=== PATIENT | female | born 1975 | race Caucasian/White ===

== ENCOUNTER 2022-08-24 11:12 | Inpatient (IN) | payer OTHER ==
[2022-08-24 11:28] VITALS: BMI 46.3
[2022-08-24] MEDS ORDERED: NALOXONE HCL 0.4 MG/ML VIAL IM PRN (12:52)
[2022-08-24] MEDS ORDERED: DICYCLOMINE HCL 10 MG CAPSULE PO PRN (12:52)
[2022-08-24] MEDS ORDERED: IBUPROFEN 400 MG TABLET (FP) PO PRN (12:52)
[2022-08-24] MEDS ORDERED: POLYETHYLENE GLYCOL (HEALTHYLAX) 3350 17 GM PACKET PO PRN (12:52)
[2022-08-24] MEDS ORDERED: NICOTINE 10 MG CARTRIDGE (INHALER) IH PRN (12:52)
[2022-08-24] MEDS ORDERED: MAG HYDROX/AL HYDROX/SIMETH 30 ML UNIT-DOSE CUP PO PRN (12:52)
[2022-08-24] MEDS ORDERED: MAGNESIUM HYDROX 2400MG/30ML ORAL SUSPENSION 30 ML CUP PO PRN (12:52)
[2022-08-24] MEDS ORDERED: BISMUTH SUBSALICYLATE 524 MG/30 ML PO PRN (12:52)
[2022-08-24] MEDS ORDERED: BENZONATATE 200 MG CAPSULE PO PRN (12:52)
[2022-08-24] MEDS ORDERED: ONDANSETRON *ODT* 4 MG TABLET SL PRN (12:52)
[2022-08-24] MEDS ORDERED: NALOXONE HCL (KLOXXADO) 8 MG SPRAY NS PRN (12:52)
[2022-08-24] MEDS ORDERED: guaiFENesin 600 MG TABLET.ER (FP) PO PRN (12:52)
[2022-08-24] MEDS ORDERED: LOPERAMIDE HCL 2 MG CAPSULE PO PRN (12:52)
[2022-08-24] MEDS ORDERED: BENZOCAINE/MENTHOL (CHLORASEPTIC ) LOZENGE MM PRN (12:52)
[2022-08-24] MEDS: LORazepam 1 MG TABLET PO PRN (13:40)
[2022-08-24] MEDS ORDERED: LORazepam 1 MG TABLET ONE (13:41)
[2022-08-24] MEDS: ACETAMINOPHEN 325 MG TABLET (FP) PO PRN (14:43)
[2022-08-24] MEDS: hydrOXYzine PAMOATE 25 MG CAPSULE (FP) PO PRN (16:05)
[2022-08-24 17:07] LABS: MCH 23.8 pg (25.7-33.7); MEAN PLT VOLUME 7.9 fl (7.5-11.1)
[2022-08-24 17:09] LABS: HEMATOCRIT 35.4 % (32.4-45.2); HEMOGLOBIN 11.3 GM/dL (10.7-15.3); MEAN CELL VOLUME 74.3 fl (80-96); PLATELET COUNT 369 10^3/uL (134-434); RBC 4.76 M/mm3 (3.60-5.2); RDW 18.8 % (11.6-15.6)
[2022-08-24 17:29] LABS: CALCIUM 8.7 mg/dL (8.5-10.1)
[2022-08-24 17:30] LABS: ALBUMIN 3.7 g/dl (3.4-5.0)
[2022-08-24 17:34] LABS: BILIRUBIN,TOTAL 0.4 mg/dL (0.2-1); CREATININE 0.6 mg/dL (0.55-1.3)
[2022-08-24 17:36] LABS: BLOOD UREA NITROGEN 9.8 mg/dL (7-18); TOT PROT 7.9 g/dl (6.4-8.2)
[2022-08-24] MEDS: LORazepam 2 MG TABLET PO SCH ×2 (17:47→22:22)
[2022-08-24] MEDS: MELATONIN 5 MG TABLETS PO SCH (22:21)
[2022-08-24] MEDS: METHOCARBAMOL 500 MG TABLET PO PRN (22:22)
[2022-08-24] MEDS: THIAMINE HCL 100 MG TABLET (FP) PO SCH (22:22)
[2022-08-25] MEDS: LORazepam 2 MG TABLET PO SCH ×4 (05:20→22:07)
[2022-08-25] MEDS: PRENATAL VITAMINS W/ FOLIC ACID TABLET (FP) PO SCH (10:25)
[2022-08-25] MEDS: LORazepam 1 MG TABLET PO PRN (15:34)
[2022-08-25] MEDS: IBUPROFEN 600 MG TABLET (FP) PO PRN (17:45)
[2022-08-25] MEDS: METHOCARBAMOL 500 MG TABLET PO PRN (17:46)
[2022-08-25] MEDS: MELATONIN 5 MG TABLETS PO SCH (22:05)
[2022-08-25] MEDS: THIAMINE HCL 100 MG TABLET (FP) PO SCH (22:06)
[2022-08-26] MEDS: LORazepam 1 MG TABLET PO SCH ×4 (05:28→22:10)
[2022-08-26] MEDS: METHOCARBAMOL 500 MG TABLET PO PRN ×2 (05:31→19:58)
[2022-08-26] MEDS: IBUPROFEN 600 MG TABLET (FP) PO PRN ×2 (05:31→19:58)
[2022-08-26] MEDS: PRENATAL VITAMINS W/ FOLIC ACID TABLET (FP) PO SCH (10:21)
[2022-08-26] MEDS: LORazepam 1 MG TABLET PO PRN (13:17)
[2022-08-26] MEDS: ACETAMINOPHEN 325 MG TABLET (FP) PO PRN (17:56)
[2022-08-26] MEDS: hydrOXYzine PAMOATE 25 MG CAPSULE (FP) PO PRN (22:09)
[2022-08-26] MEDS: THIAMINE HCL 100 MG TABLET (FP) PO SCH (22:09)
[2022-08-26] MEDS: MELATONIN 5 MG TABLETS PO SCH (22:09)
[2022-08-27] MEDS ORDERED: LORazepam 0.5 MG TABLET PO PRN
[2022-08-27] MEDS: LORazepam 0.5 MG TABLET PO SCH ×4 (05:49→22:35)
[2022-08-27] MEDS: PRENATAL VITAMINS W/ FOLIC ACID TABLET (FP) PO SCH (10:09)
[2022-08-27] MEDS: METHOCARBAMOL 500 MG TABLET PO PRN ×2 (10:10→22:36)
[2022-08-27] MEDS: ACETAMINOPHEN 325 MG TABLET (FP) PO PRN (10:10)
[2022-08-27] MEDS: IBUPROFEN 600 MG TABLET (FP) PO PRN ×2 (14:03→22:35)
[2022-08-27] MEDS: hydrOXYzine PAMOATE 25 MG CAPSULE (FP) PO PRN (17:28)
[2022-08-27] MEDS: MELATONIN 5 MG TABLETS PO SCH (22:32)
[2022-08-27] MEDS: THIAMINE HCL 100 MG TABLET (FP) PO SCH (22:33)
[2022-08-28] MEDS ORDERED: LORazepam 0.5 MG TABLET PO ONE (05:00)
[2022-08-28 09:04] VITALS: BP 133/78; PULSE 81; RESP 16; TEMP 97.1
[2022-08-28] MEDS: PRENATAL VITAMINS W/ FOLIC ACID TABLET (FP) PO SCH (09:41)
[2022-08-28 10:31] LABS: PH,URINE 5.5 (5.0-8.0); URINE APPEARANCE CLOUDY; URINE BILIRUBIN NEGATIVE (NEGATIVE); URINE COLOR YELLOW; URINE GLUCOSE (UA) NEGATIVE (NEGATIVE); URINE KETONE NEGATIVE (NEGATIVE); URINE LEUK ESTERASE NEGATIVE (NEGATIVE); URINE NITRITE NEGATIVE (NEGATIVE); URINE PROTEIN NEGATIVE (NEGATIVE); URINE UROBILINOGEN 0.2 mg/dL (0.2-1.0)
== END 2022-08-28 09:40 | disposition home or self-care (01) | DRG 775 ==
LOC: YASAS 11:12 → Y3N 12:52 → UNDOADMIN 13:22 → Y3N 13:22
PROVIDERS: ADMIT Allergy & Immunology; ATTEND Surgery
PROC: HZ2ZZZZ Detoxification Services for Substance Abuse Treatment (ICD-10-PCS; principal; 2022-08-24)
DX: F10.230 Alcohol dependence with withdrawal, uncomplicated (principal); E72.20 Disorder of urea cycle metabolism, unspecified; R60.0 Localized edema; E66.01 Morbid (severe) obesity due to excess calories; Z68.42 Body mass index [BMI] 45.0-49.9, adult; Z86.19 Personal history of other infectious and parasitic diseases; Z98.84 Bariatric surgery status; Z28.310 Unvaccinated for COVID-19; Z28.9 Immunization not carried out for unspecified reason
CPT/HCPCS: 36415; 80053; 81003; 82140; 82962; 83036; 85027; 86780; 87086; 93005; 93010; C9803-CS; U0003; U0005

== ENCOUNTER 2023-05-08 22:59 | Inpatient (IN) | payer OTHER ==
[2023-05-08 23:58] VITALS: BMI 47.0
[2023-05-09] MEDS ORDERED: MAGNESIUM HYDROX 2400MG/30ML ORAL SUSPENSION 30 ML CUP PO PRN (05:36)
[2023-05-09] MEDS ORDERED: IBUPROFEN 400 MG TABLET (FP) PO PRN (05:36)
[2023-05-09] MEDS ORDERED: BISMUTH SUBSALICYLATE 524 MG/30 ML PO PRN (05:36)
[2023-05-09] MEDS ORDERED: ONDANSETRON *ODT* 4 MG TABLET SL PRN (05:36)
[2023-05-09] MEDS ORDERED: LOPERAMIDE HCL 2 MG CAPSULE PO PRN (05:36)
[2023-05-09] MEDS ORDERED: NALOXONE HCL (KLOXXADO) 8 MG SPRAY NS PRN (05:36)
[2023-05-09] MEDS ORDERED: MAG HYDROX/AL HYDROX/SIMETH 30 ML UNIT-DOSE CUP PO PRN (05:36)
[2023-05-09] MEDS ORDERED: NALOXONE HCL 0.4 MG/ML VIAL IM PRN (05:36)
[2023-05-09] MEDS ORDERED: DICYCLOMINE HCL 10 MG CAPSULE PO PRN (05:36)
[2023-05-09] MEDS ORDERED: BENZONATATE 200 MG CAPSULE PO PRN (05:36)
[2023-05-09] MEDS ORDERED: BENZOCAINE/MENTHOL (CHLORASEPTIC ) LOZENGE MM PRN (05:36)
[2023-05-09] MEDS ORDERED: guaiFENesin 600 MG TABLET.ER (FP) PO PRN (05:36)
[2023-05-09] MEDS ORDERED: POLYETHYLENE GLYCOL (HEALTHYLAX) 3350 17 GM PACKET PO PRN (05:36)
[2023-05-09] MEDS: ACETAMINOPHEN 325 MG TABLET (FP) PO PRN (06:03)
[2023-05-09] MEDS ORDERED: propRANOLol HCL 10 MG TABLET PO ONE (10:01)
[2023-05-09] MEDS: PRENATAL VITAMINS W/ FOLIC ACID TABLET (FP) PO SCH (10:36)
[2023-05-09 13:25] LABS: HIV INTERPRETATION NEGATIVE (NEGATIVE)
[2023-05-09] MEDS: hydrOXYzine PAMOATE 25 MG CAPSULE (FP) PO PRN (22:07)
[2023-05-09] MEDS: THIAMINE HCL 100 MG TABLET (FP) PO SCH (22:07)
[2023-05-09] MEDS: MELATONIN 5 MG TABLETS PO SCH (22:07)
[2023-05-10] MEDS: ACETAMINOPHEN 325 MG TABLET (FP) PO PRN (05:52)
[2023-05-10] MEDS ORDERED: diazePAM 5 MG TABLET PO PRN (09:14)
[2023-05-10] MEDS ORDERED: LISINOPRIL 20 MG TABLET PO ONE (09:15)
[2023-05-10] MEDS: PRENATAL VITAMINS W/ FOLIC ACID TABLET (FP) PO SCH (10:10)
[2023-05-10] MEDS: diazePAM 5 MG TABLET PO SCH ×3 (10:10→22:10)
[2023-05-10] MEDS ORDERED: FUROSEMIDE 20 MG TABLET (FP) PO SCH (10:59)
[2023-05-10 11:44] LABS: POTASSIUM 4.4 mmol/L (3.5-5.1)
[2023-05-10 11:58] LABS: HEMATOCRIT 35.3 % (32.4-45.2); HEMOGLOBIN 11.3 GM/dL (10.7-15.3); MCH 24.5 pg (25.7-33.7); MEAN CELL VOLUME 76.7 fl (80-96); MEAN PLT VOLUME 8.3 fl (7.5-11.1); PLATELET COUNT 281 10^3/uL (134-434); RDW 16.8 % (11.6-15.6); WHITE BLOOD COUNT 3.5 K/mm3 (4.0-10.0)
[2023-05-10 12:00] LABS: ALBUMIN 3.4 g/dl (3.4-5.0); BLOOD UREA NITROGEN 9.6 mg/dL (7-18); CALCIUM 8.3 mg/dL (8.5-10.1)
[2023-05-10 12:04] LABS: BILIRUBIN,TOTAL 0.8 mg/dL (0.2-1); CREATININE 0.7 mg/dL (0.55-1.3)
[2023-05-10 12:05] LABS: TOT PROT 7.4 g/dl (6.4-8.2)
[2023-05-10] MEDS: FUROSEMIDE 20 MG TABLET (FP) PO SCH (13:42)
[2023-05-10] MEDS: MELATONIN 5 MG TABLETS PO SCH (22:08)
[2023-05-10] MEDS: THIAMINE HCL 100 MG TABLET (FP) PO SCH (22:09)
[2023-05-10] MEDS: METHOCARBAMOL 500 MG TABLET PO PRN (22:09)
[2023-05-11] MEDS: FUROSEMIDE 20 MG TABLET (FP) PO SCH ×2 (05:30→13:47)
[2023-05-11] MEDS: diazePAM 5 MG TABLET PO SCH ×4 (05:30→22:26)
[2023-05-11] MEDS: ACETAMINOPHEN 325 MG TABLET (FP) PO PRN (05:31)
[2023-05-11] MEDS: METHOCARBAMOL 500 MG TABLET PO PRN ×2 (05:31→22:27)
[2023-05-11] MEDS: PRENATAL VITAMINS W/ FOLIC ACID TABLET (FP) PO SCH (10:19)
[2023-05-11] MEDS: IBUPROFEN 600 MG TABLET (FP) PO PRN (17:37)
[2023-05-11] MEDS: MELATONIN 5 MG TABLETS PO SCH (22:25)
[2023-05-11] MEDS: THIAMINE HCL 100 MG TABLET (FP) PO SCH (22:26)
[2023-05-12] MEDS: FUROSEMIDE 20 MG TABLET (FP) PO SCH ×2 (06:01→13:29)
[2023-05-12] MEDS: diazePAM 5 MG TABLET PO SCH ×3 (06:02→22:22)
[2023-05-12] MEDS: METHOCARBAMOL 500 MG TABLET PO PRN (06:05)
[2023-05-12] MEDS: PRENATAL VITAMINS W/ FOLIC ACID TABLET (FP) PO SCH (09:22)
[2023-05-12] MEDS: IBUPROFEN 600 MG TABLET (FP) PO PRN (09:23)
[2023-05-12] MEDS: THIAMINE HCL 100 MG TABLET (FP) PO SCH (22:22)
[2023-05-12] MEDS ORDERED: SUVOREXANT 10 MG TABLET PO ONE (22:29)
[2023-05-13] MEDS: diazePAM 5 MG TABLET PO SCH ×2 (05:48→17:44)
[2023-05-13] MEDS: PRENATAL VITAMINS W/ FOLIC ACID TABLET (FP) PO SCH (10:26)
[2023-05-13] MEDS: METHOCARBAMOL 500 MG TABLET PO PRN ×2 (10:28→22:07)
[2023-05-13] MEDS: hydrOXYzine PAMOATE 25 MG CAPSULE (FP) PO PRN ×2 (10:28→22:07)
[2023-05-13] MEDS ORDERED: SUVOREXANT 10 MG TABLET PO PRN (22:00)
[2023-05-13] MEDS: THIAMINE HCL 100 MG TABLET (FP) PO SCH (22:07)
[2023-05-14] MEDS ORDERED: diazePAM 5 MG TABLET PO ONE (06:00)
[2023-05-14] MEDS: PRENATAL VITAMINS W/ FOLIC ACID TABLET (FP) PO SCH (10:02)
[2023-05-14] MEDS: LACTULOSE 20 GM/30 ML UDC (FOR ORAL USE ONLY) PO SCH ×2 (10:03→13:01)
[2023-05-14] MEDS ORDERED: amLODIPine BESYLATE 2.5 MG TABLET (FP) PO SCH (13:00)
[2023-05-14 13:15] VITALS: BP 146/82; PULSE 95; RESP 18; TEMP 98
== END 2023-05-14 14:07 | disposition other institution (70) | DRG 775 ==
LOC: YASAS 22:59 → Y6N 05-09 05:59
PROVIDERS: ADMIT Allergy & Immunology; ATTEND Surgery
PROC: HZ2ZZZZ Detoxification Services for Substance Abuse Treatment (ICD-10-PCS; principal; 2023-05-09)
DX: F10.230 Alcohol dependence with withdrawal, uncomplicated (principal); F10.24 Alcohol dependence with alcohol-induced mood disorder; F10.282 Alcohol dependence with alcohol-induced sleep disorder; F32.9 Major depressive disorder, single episode, unspecified; I10 Essential (primary) hypertension; E72.20 Disorder of urea cycle metabolism, unspecified; R60.0 Localized edema; G43.709 Chronic migraine without aura, not intractable, without status migrainosus; E66.01 Morbid (severe) obesity due to excess calories; Z68.42 Body mass index [BMI] 45.0-49.9, adult; Z98.84 Bariatric surgery status; Z62.810 Personal history of physical and sexual abuse in childhood; Z91.013 Allergy to seafood
CPT/HCPCS: 36415; 80053; 80307; 81025; 82140; 85027; 86780; 87389; 87635; 87811; 93005; 93010; Q0162

== ENCOUNTER 2023-05-14 14:17 | Inpatient (IN) | payer OTHER ==
[~2023-05-14 14:17] MED LIST: ACETAMINOPHEN 325 MG TABLET (FP) PO PRN; BENZOCAINE/MENTHOL (CHLORASEPTIC ) LOZENGE MM PRN; BENZONATATE 200 MG CAPSULE PO PRN; COLLOIDAL OATMEAL 1 BAR EACH TP PRN; IBUPROFEN 400 MG TABLET (FP) PO PRN; LOPERAMIDE HCL 2 MG CAPSULE PO PRN; MAG HYDROX/AL HYDROX/SIMETH 30 ML UNIT-DOSE CUP PO PRN; MAGNESIUM HYDROX 2400MG/30ML ORAL SUSPENSION 30 ML CUP PO PRN; NALOXONE HCL (KLOXXADO) 8 MG SPRAY NS PRN; NALOXONE HCL 0.4 MG/ML VIAL IVPUSH PRN; POLYETHYLENE GLYCOL (HEALTHYLAX) 3350 17 GM PACKET PO PRN; guaiFENesin 600 MG TABLET.ER (FP) PO PRN
[2023-05-14] MEDS: THIAMINE HCL 100 MG TABLET (FP) PO SCH (21:31)
[2023-05-14] MEDS ORDERED: MELATONIN 5 MG TABLETS PO SCH (22:00)
[2023-05-14] MEDS: SUVOREXANT 10 MG TABLET PO PRN (22:24)
[2023-05-15] MEDS: PRENATAL VITAMINS W/ FOLIC ACID TABLET (FP) PO SCH (10:52)
[2023-05-15] MEDS: amLODIPine BESYLATE 2.5 MG TABLET (FP) PO SCH (10:52)
[2023-05-15] MEDS: IBUPROFEN 600 MG TABLET (FP) PO PRN ×2 (10:52→21:23)
[2023-05-15] MEDS: METHOCARBAMOL 500 MG TABLET PO PRN (10:52)
[2023-05-15] MEDS ORDERED: PNEUMOC 20-VAL CONJ-DIP CRM/PF 0.5 ML SYRINGE IM ONE (12:00)
[2023-05-15] MEDS: FUROSEMIDE 40 MG TABLET (FP) PO SCH ×2 (12:40→14:52)
[2023-05-15] MEDS ORDERED: FUROSEMIDE 40 MG TABLET (FP) PO SCH (14:00)
[2023-05-15] MEDS: LIDOCAINE PATCH REMOVAL MC SCH (21:22)
[2023-05-15] MEDS: SUVOREXANT 10 MG TABLET PO PRN (21:25)
[2023-05-15] MEDS: THIAMINE HCL 100 MG TABLET (FP) PO SCH (21:55)
[2023-05-16] MEDS: IBUPROFEN 600 MG TABLET (FP) PO PRN ×2 (06:50→13:55)
[2023-05-16] MEDS: FUROSEMIDE 40 MG TABLET (FP) PO SCH ×2 (06:50→13:54)
[2023-05-16] MEDS: PRENATAL VITAMINS W/ FOLIC ACID TABLET (FP) PO SCH (10:19)
[2023-05-16] MEDS: hydrOXYzine PAMOATE 25 MG CAPSULE (FP) PO PRN (10:19)
[2023-05-16] MEDS: METHOCARBAMOL 500 MG TABLET PO PRN ×2 (10:19→21:38)
[2023-05-16] MEDS: amLODIPine BESYLATE 2.5 MG TABLET (FP) PO SCH (10:20)
[2023-05-16] MEDS: LIDOCAINE 4% PATCH TP SCH (10:20)
[2023-05-16] MEDS: LIDOCAINE PATCH REMOVAL MC SCH (21:37)
[2023-05-16] MEDS: THIAMINE HCL 100 MG TABLET (FP) PO SCH (21:38)
[2023-05-16] MEDS: SUVOREXANT 10 MG TABLET PO PRN (21:39)
[2023-05-17] MEDS: FUROSEMIDE 40 MG TABLET (FP) PO SCH (06:04)
[2023-05-17] MEDS: METHOCARBAMOL 500 MG TABLET PO PRN (10:08)
[2023-05-17] MEDS: amLODIPine BESYLATE 2.5 MG TABLET (FP) PO SCH (10:08)
[2023-05-17] MEDS: PRENATAL VITAMINS W/ FOLIC ACID TABLET (FP) PO SCH (10:08)
[2023-05-17] MEDS: IBUPROFEN 600 MG TABLET (FP) PO PRN (10:09)
[2023-05-17] MEDS: LIDOCAINE 4% PATCH TP SCH (10:10)
[2023-05-17] MEDS ORDERED: NALTREXONE HCL 50 MG TABLET PO SCH (11:30)
[2023-05-17] MEDS: LACTULOSE 20 GM/30 ML UDC (FOR ORAL USE ONLY) PO SCH ×2 (14:21→21:36)
[2023-05-17] MEDS: LIDOCAINE PATCH REMOVAL MC SCH (21:36)
[2023-05-17] MEDS: SUVOREXANT 15 MG TABLET PO PRN (21:36)
[2023-05-17] MEDS: THIAMINE HCL 100 MG TABLET (FP) PO SCH (21:36)
[2023-05-17] MEDS ORDERED: SUVOREXANT 10 MG TABLET PO PRN (22:00)
[2023-05-18] MEDS: LACTULOSE 20 GM/30 ML UDC (FOR ORAL USE ONLY) PO SCH ×3 (06:11→21:24)
[2023-05-18] MEDS: PRENATAL VITAMINS W/ FOLIC ACID TABLET (FP) PO SCH (10:17)
[2023-05-18] MEDS: LIDOCAINE 4% PATCH TP SCH (10:17)
[2023-05-18] MEDS: NALTREXONE HCL 50 MG TABLET PO SCH (10:17)
[2023-05-18] MEDS: METHOCARBAMOL 500 MG TABLET PO PRN (10:19)
[2023-05-18] MEDS: IBUPROFEN 600 MG TABLET (FP) PO PRN (10:19)
[2023-05-18] MEDS: hydrOXYzine PAMOATE 25 MG CAPSULE (FP) PO PRN ×2 (10:20→15:10)
[2023-05-18 10:40] LABS: POTASSIUM 3.8 mmol/L (3.5-5.1)
[2023-05-18 10:42] LABS: INR 1.02 (0.83-1.09); PROTHROMBIN TIME (PATIENT) 11.8 SEC (9.7-13.0)
[2023-05-18 10:52] LABS: CALCIUM 8.7 mg/dL (8.5-10.1)
[2023-05-18 10:53] LABS: BLOOD UREA NITROGEN 13.5 mg/dL (7-18)
[2023-05-18 10:55] LABS: CREATININE 0.6 mg/dL (0.55-1.3)
[2023-05-18 10:57] LABS: BILIRUBIN,TOTAL 0.4 mg/dL (0.2-1)
[2023-05-18 11:02] LABS: TOT PROT 6.7 g/dl (6.4-8.2)
[2023-05-18] MEDS ORDERED: FLU VACCINE (FLULAVAL) PF 60 MCG/0.5 ML SYRINGE 2023-2024 IM ONE (12:00)
[2023-05-18] MEDS: THIAMINE HCL 100 MG TABLET (FP) PO SCH (21:24)
[2023-05-18] MEDS: SUVOREXANT 15 MG TABLET PO PRN (21:24)
[2023-05-18] MEDS: LIDOCAINE PATCH REMOVAL MC SCH (21:25)
[2023-05-19] MEDS: LACTULOSE 20 GM/30 ML UDC (FOR ORAL USE ONLY) PO SCH ×3 (06:06→21:29)
[2023-05-19] MEDS: IBUPROFEN 600 MG TABLET (FP) PO PRN ×2 (06:07→21:32)
[2023-05-19] MEDS: PRENATAL VITAMINS W/ FOLIC ACID TABLET (FP) PO SCH (09:59)
[2023-05-19] MEDS: LIDOCAINE 4% PATCH TP SCH (10:00)
[2023-05-19] MEDS: NALTREXONE HCL 50 MG TABLET PO SCH (10:00)
[2023-05-19] MEDS: METHOCARBAMOL 500 MG TABLET PO PRN (21:30)
[2023-05-19] MEDS: THIAMINE HCL 100 MG TABLET (FP) PO SCH (21:30)
[2023-05-19] MEDS: LIDOCAINE PATCH REMOVAL MC SCH (21:30)
[2023-05-19] MEDS: SUVOREXANT 15 MG TABLET PO PRN (21:31)
[2023-05-20] MEDS: IBUPROFEN 600 MG TABLET (FP) PO PRN (06:07)
[2023-05-20] MEDS: LACTULOSE 20 GM/30 ML UDC (FOR ORAL USE ONLY) PO SCH ×3 (06:07→21:27)
[2023-05-20] MEDS: METHOCARBAMOL 500 MG TABLET PO PRN (10:53)
[2023-05-20] MEDS: hydrOXYzine PAMOATE 25 MG CAPSULE (FP) PO PRN (10:53)
[2023-05-20] MEDS: PRENATAL VITAMINS W/ FOLIC ACID TABLET (FP) PO SCH (10:53)
[2023-05-20] MEDS: NALTREXONE HCL 50 MG TABLET PO SCH (10:54)
[2023-05-20] MEDS: LIDOCAINE 4% PATCH TP SCH (10:55)
[2023-05-20] MEDS: LIDOCAINE PATCH REMOVAL MC SCH (21:27)
[2023-05-20] MEDS: SUVOREXANT 15 MG TABLET PO PRN (21:27)
[2023-05-20] MEDS: THIAMINE HCL 100 MG TABLET (FP) PO SCH (21:27)
[2023-05-20] MEDS ORDERED: SUVOREXANT 5 MG TABLET PO PRN (22:00)
[2023-05-21] MEDS: LACTULOSE 20 GM/30 ML UDC (FOR ORAL USE ONLY) PO SCH ×3 (06:28→21:12)
[2023-05-21] MEDS: IBUPROFEN 600 MG TABLET (FP) PO PRN (06:29)
[2023-05-21] MEDS: NALTREXONE HCL 50 MG TABLET PO SCH (10:23)
[2023-05-21] MEDS: LIDOCAINE 4% PATCH TP SCH (10:23)
[2023-05-21] MEDS: PRENATAL VITAMINS W/ FOLIC ACID TABLET (FP) PO SCH (10:23)
[2023-05-21] MEDS: hydrOXYzine PAMOATE 25 MG CAPSULE (FP) PO PRN (10:24)
[2023-05-21] MEDS: LIDOCAINE PATCH REMOVAL MC SCH (21:12)
[2023-05-21] MEDS: THIAMINE HCL 100 MG TABLET (FP) PO SCH (21:12)
[2023-05-22] MEDS: LACTULOSE 20 GM/30 ML UDC (FOR ORAL USE ONLY) PO SCH ×3 (06:40→21:10)
[2023-05-22] MEDS: PRENATAL VITAMINS W/ FOLIC ACID TABLET (FP) PO SCH (10:18)
[2023-05-22] MEDS: LIDOCAINE 4% PATCH TP SCH (10:18)
[2023-05-22] MEDS: NALTREXONE HCL 50 MG TABLET PO SCH (10:18)
[2023-05-22] MEDS ORDERED: FLU VACC QS2022-23(6MOS UP)/PF 60 MCG/0.5 ML SYRINGE IM ONE (11:28)
[2023-05-22] MEDS: ACAMPROSATE CALCIUM 333 MG TABLET.DR PO SCH ×2 (15:35→21:10)
[2023-05-22] MEDS: HYDROCHLOROTHIAZIDE 12.5 MG CAPSULE (FP) PO SCH (15:35)
[2023-05-22] MEDS: THIAMINE HCL 100 MG TABLET (FP) PO SCH (21:10)
[2023-05-22] MEDS: LIDOCAINE PATCH REMOVAL MC SCH (21:11)
[2023-05-23] MEDS: ACAMPROSATE CALCIUM 333 MG TABLET.DR PO SCH ×3 (06:47→22:12)
[2023-05-23] MEDS: LACTULOSE 20 GM/30 ML UDC (FOR ORAL USE ONLY) PO SCH ×3 (06:47→22:12)
[2023-05-23] MEDS: LIDOCAINE 4% PATCH TP SCH (10:19)
[2023-05-23] MEDS: HYDROCHLOROTHIAZIDE 12.5 MG CAPSULE (FP) PO SCH (10:19)
[2023-05-23] MEDS: NALTREXONE HCL 50 MG TABLET PO SCH (10:20)
[2023-05-23] MEDS: PRENATAL VITAMINS W/ FOLIC ACID TABLET (FP) PO SCH (10:20)
[2023-05-23] MEDS: hydrOXYzine PAMOATE 25 MG CAPSULE (FP) PO PRN (22:11)
[2023-05-23] MEDS: THIAMINE HCL 100 MG TABLET (FP) PO SCH (22:11)
[2023-05-23] MEDS: SUVOREXANT 15 MG TABLET PO PRN (22:12)
[2023-05-23] MEDS: LIDOCAINE PATCH REMOVAL MC SCH (22:12)
[2023-05-24] MEDS: ACAMPROSATE CALCIUM 333 MG TABLET.DR PO SCH ×3 (05:53→21:18)
[2023-05-24] MEDS: LACTULOSE 20 GM/30 ML UDC (FOR ORAL USE ONLY) PO SCH ×3 (05:53→21:18)
[2023-05-24] MEDS: HYDROCHLOROTHIAZIDE 12.5 MG CAPSULE (FP) PO SCH (10:03)
[2023-05-24] MEDS: NALTREXONE HCL 50 MG TABLET PO SCH (10:03)
[2023-05-24] MEDS: PRENATAL VITAMINS W/ FOLIC ACID TABLET (FP) PO SCH (10:03)
[2023-05-24] MEDS: LIDOCAINE 4% PATCH TP SCH (10:03)
[2023-05-24] MEDS: hydrOXYzine PAMOATE 25 MG CAPSULE (FP) PO PRN (10:04)
[2023-05-24] MEDS: IBUPROFEN 600 MG TABLET (FP) PO PRN (10:07)
[2023-05-24] MEDS: SUVOREXANT 15 MG TABLET PO PRN (21:17)
[2023-05-24] MEDS: LIDOCAINE PATCH REMOVAL MC SCH (21:18)
[2023-05-24] MEDS: THIAMINE HCL 100 MG TABLET (FP) PO SCH (21:18)
[2023-05-25] MEDS: ACAMPROSATE CALCIUM 333 MG TABLET.DR PO SCH ×3 (06:12→22:06)
[2023-05-25] MEDS: LACTULOSE 20 GM/30 ML UDC (FOR ORAL USE ONLY) PO SCH ×3 (06:12→22:05)
[2023-05-25] MEDS: PRENATAL VITAMINS W/ FOLIC ACID TABLET (FP) PO SCH (10:14)
[2023-05-25] MEDS: LIDOCAINE 4% PATCH TP SCH (10:15)
[2023-05-25] MEDS: HYDROCHLOROTHIAZIDE 12.5 MG CAPSULE (FP) PO SCH (10:15)
[2023-05-25] MEDS: NALTREXONE HCL 50 MG TABLET PO SCH (10:15)
[2023-05-25] MEDS: hydrOXYzine PAMOATE 25 MG CAPSULE (FP) PO PRN ×2 (10:16→22:05)
[2023-05-25] MEDS: THIAMINE HCL 100 MG TABLET (FP) PO SCH (22:06)
[2023-05-25] MEDS: LIDOCAINE PATCH REMOVAL MC SCH (22:06)
[2023-05-25] MEDS: SUVOREXANT 15 MG TABLET PO PRN (22:06)
[2023-05-26] MEDS: LACTULOSE 20 GM/30 ML UDC (FOR ORAL USE ONLY) PO SCH ×3 (06:12→21:27)
[2023-05-26] MEDS: ACAMPROSATE CALCIUM 333 MG TABLET.DR PO SCH ×3 (06:12→21:27)
[2023-05-26] MEDS: LIDOCAINE 4% PATCH TP SCH (09:52)
[2023-05-26] MEDS: HYDROCHLOROTHIAZIDE 12.5 MG CAPSULE (FP) PO SCH (09:53)
[2023-05-26] MEDS: PRENATAL VITAMINS W/ FOLIC ACID TABLET (FP) PO SCH (09:53)
[2023-05-26] MEDS: hydrOXYzine PAMOATE 25 MG CAPSULE (FP) PO PRN (09:53)
[2023-05-26] MEDS: NALTREXONE HCL 50 MG TABLET PO SCH (09:53)
[2023-05-26] MEDS: IBUPROFEN 600 MG TABLET (FP) PO PRN ×2 (14:47→21:29)
[2023-05-26] MEDS: THIAMINE HCL 100 MG TABLET (FP) PO SCH (21:27)
[2023-05-26] MEDS: LIDOCAINE PATCH REMOVAL MC SCH (21:28)
[2023-05-26] MEDS ORDERED: SUVOREXANT 15 MG TABLET PO PRN (22:00)
[2023-05-27] MEDS: LACTULOSE 20 GM/30 ML UDC (FOR ORAL USE ONLY) PO SCH ×3 (06:34→21:19)
[2023-05-27] MEDS: ACAMPROSATE CALCIUM 333 MG TABLET.DR PO SCH ×3 (06:34→21:19)
[2023-05-27] MEDS: LIDOCAINE 4% PATCH TP SCH (09:57)
[2023-05-27] MEDS: HYDROCHLOROTHIAZIDE 12.5 MG CAPSULE (FP) PO SCH (09:57)
[2023-05-27] MEDS: NALTREXONE HCL 50 MG TABLET PO SCH (09:57)
[2023-05-27] MEDS: PRENATAL VITAMINS W/ FOLIC ACID TABLET (FP) PO SCH (09:58)
[2023-05-27] MEDS: IBUPROFEN 600 MG TABLET (FP) PO PRN ×3 (09:59→22:57)
[2023-05-27] MEDS: hydrOXYzine PAMOATE 25 MG CAPSULE (FP) PO PRN ×2 (10:00→22:57)
[2023-05-27] MEDS: THIAMINE HCL 100 MG TABLET (FP) PO SCH (21:19)
[2023-05-27] MEDS: LIDOCAINE PATCH REMOVAL MC SCH (21:20)
[2023-05-28] MEDS: ACAMPROSATE CALCIUM 333 MG TABLET.DR PO SCH ×3 (06:42→21:12)
[2023-05-28] MEDS: LACTULOSE 20 GM/30 ML UDC (FOR ORAL USE ONLY) PO SCH ×3 (06:42→21:12)
[2023-05-28] MEDS: NALTREXONE HCL 50 MG TABLET PO SCH (10:13)
[2023-05-28] MEDS: HYDROCHLOROTHIAZIDE 12.5 MG CAPSULE (FP) PO SCH (10:13)
[2023-05-28] MEDS: IBUPROFEN 600 MG TABLET (FP) PO PRN (10:13)
[2023-05-28] MEDS: LIDOCAINE 4% PATCH TP SCH (10:16)
[2023-05-28] MEDS: PRENATAL VITAMINS W/ FOLIC ACID TABLET (FP) PO SCH (10:17)
[2023-05-28] MEDS: LIDOCAINE PATCH REMOVAL MC SCH (21:12)
[2023-05-28] MEDS: THIAMINE HCL 100 MG TABLET (FP) PO SCH (21:12)
[2023-05-28] MEDS ORDERED: SUVOREXANT 15 MG TABLET PO PRN (22:00)
[2023-05-29] MEDS: IBUPROFEN 600 MG TABLET (FP) PO PRN ×2 (01:00→21:12)
[2023-05-29] MEDS: LACTULOSE 20 GM/30 ML UDC (FOR ORAL USE ONLY) PO SCH ×4 (06:00→21:10)
[2023-05-29] MEDS: ACAMPROSATE CALCIUM 333 MG TABLET.DR PO SCH ×3 (06:29→21:09)
[2023-05-29 07:11] VITALS: RESP 18
[2023-05-29] MEDS: LIDOCAINE 4% PATCH TP SCH (09:54)
[2023-05-29] MEDS: PRENATAL VITAMINS W/ FOLIC ACID TABLET (FP) PO SCH (09:55)
[2023-05-29] MEDS: NALTREXONE HCL 50 MG TABLET PO SCH (09:56)
[2023-05-29] MEDS: hydrOXYzine PAMOATE 25 MG CAPSULE (FP) PO PRN (09:57)
[2023-05-29] MEDS: HYDROCHLOROTHIAZIDE 12.5 MG CAPSULE (FP) PO SCH (09:57)
[2023-05-29] MEDS ORDERED: NALTREXONE MICROSPHERES (VIVITROL) 380 MG DISP.SYRIN IM ONE (10:00)
[2023-05-29] MEDS: LIDOCAINE PATCH REMOVAL MC SCH (21:10)
[2023-05-29] MEDS: THIAMINE HCL 100 MG TABLET (FP) PO SCH (21:10)
[2023-05-30] MEDS: IBUPROFEN 600 MG TABLET (FP) PO PRN (06:16)
[2023-05-30] MEDS: ACAMPROSATE CALCIUM 333 MG TABLET.DR PO SCH (06:16)
[2023-05-30] MEDS: LACTULOSE 20 GM/30 ML UDC (FOR ORAL USE ONLY) PO SCH (06:17)
[2023-05-30 07:05] VITALS: TEMP 97.5
[2023-05-30] MEDS: hydrOXYzine PAMOATE 25 MG CAPSULE (FP) PO PRN (09:42)
[2023-05-30] MEDS: HYDROCHLOROTHIAZIDE 12.5 MG CAPSULE (FP) PO SCH (09:42)
[2023-05-30] MEDS: LIDOCAINE 4% PATCH TP SCH (09:42)
[2023-05-30] MEDS: PRENATAL VITAMINS W/ FOLIC ACID TABLET (FP) PO SCH (09:42)
[2023-05-30] MEDS: NALTREXONE HCL 50 MG TABLET PO SCH (09:42)
[2023-05-30 11:32] VITALS: BP 144/80; PULSE 107
== END 2023-05-30 10:00 | disposition home or self-care (01) | DRG 772 ==
LOC: YASAS 14:17 → Y5N 14:18
PROVIDERS: ADMIT Allergy & Immunology; ATTEND Psychiatry & Neurology Pain Medicine
PROC: HZ42ZZZ Group Counseling for Substance Abuse Treatment, Cognitive-Behavioral (ICD-10-PCS; principal; 2023-05-14)
DX: F10.20 Alcohol dependence, uncomplicated (principal); E72.20 Disorder of urea cycle metabolism, unspecified; I10 Essential (primary) hypertension; E66.01 Morbid (severe) obesity due to excess calories; Z68.42 Body mass index [BMI] 45.0-49.9, adult
CPT/HCPCS: 36415; 80053; 80061; 82140; 82652; 83036; 85610; 86803; 87635; 90677; 90686; G0008